=== PATIENT | female | born 1950 | race Caucasian/White ===

== ENCOUNTER 2023-05-19 09:17 | Outpatient (CLI) | payer OTHER, SELFPAY | END 2023-05-19 09:18 | disposition home or self-care (01) | PROVIDERS: PCP Physician Assistant Medical; Visit Provider Physician Assistant Medical | DX: Z00.00 Encounter for general adult medical examination without abnormal findings (principal); E78.5 Hyperlipidemia, unspecified; I10 Essential (primary) hypertension | CPT/HCPCS: 80053; 80061; 82550; 84443 ==

== ENCOUNTER 2023-08-14 12:35 | Outpatient (CLI) | payer MEDICARE, SELFPAY ==
--- NOTE | 2023-08-14 13:00 | CRLHL7_ITS ---
For Patients: As a result of the Century Cures Act, medical imaging exams and procedure reports are released immediately into your electronic medical record. You may view this report before your referring provider. If you have questions, please contact your health care provider. DXA BONE MINERAL DENSITY STUDY Reason for exam: Asymptomatic menopausal state. Current height (in): 61. Weight (lb): 203. Menopause age: 49. Ethnicity: White. 1. Have you had a previous hip or vertebral fracture? No. 2. Have you had any fractures during your adult life which did not result from significant trauma (e.g., auto accident)? Yes. 3. Did either of your parents have a hip fracture? No. 4. Do you smoke? Yes. 5. Have you ever taken Glucocorticoids? No. 6. Do you have rheumatoid arthritis? No. 7. Do you have secondary osteoporosis? No. 8. Do you drink 3 or more alcoholic drinks per day? No. 9. Are you being treated for osteoporosis? No. 10. Have you ever taken any of the following medications: Actonel, Evista, Fosamax, Miacalcin, Reclast, Boniva, Forteo, HRT (i.e., estrogen/hormone therapy), Protelos, Prolia, Vitamin D, Calcium, other ??? please specify. ANSWER: Yes, vitamin D. 11. Do you have any of the following medical conditions: Anorexia or bulimia, asthma or emphysema, end stage renal disease, hyperparathyroidism, any seizure disorders, cancer, inflammatory bowel diseases, hysterectomy, other ??? please specify. ANSWER: No. 12. What was your maximum height (inches)? 61.5 13. Do you perform weight bearing exercise regularly? No. 14. Do you regularly consume dairy products? Yes. 15. Do you drink caffeinated beverages? Yes. If female: 16. At what age did your period start? 11. 17. Are you premenopausal? No. 18. How many full-term pregnancies have you had? 2. 19. Have you ever missed your period for more than 6 months in a row (not including or menopause)? No. TECHNIQUE: Bone mineral density study was performed using the [facility]. FINDINGS: The results of the study expressed as bone mineral density (BMD) are as follows: Lumbar spine L2 to L4: BMD: 1.096 g/cm2. T-score: 0.2. Z-score: 2.6 Neck Left: BMD: 0.778 g/cm2. T-score: -0.6. Z-score: 1.4 Right: BMD: 0.845 g/cm2. T-score: -0.0. Z-score: 2.0 Total Left: BMD: 1.026 g/cm2. T-score: 0.7. Z-score: 2.4 Right: BMD: 1.035 g/cm2. T-score: 0.8. Z-score: 2.5 IMPRESSION: Normal bone density. Jayesh Mohr M.D. Diagnostic Radiologist [email or web address] montoya/Dictated by: Jayesh Mohr MD @ 08/14/2023 3:24:00 PM (Electronically Signed)
--- NOTE | 2023-08-14 13:30 | CRLHL7_ITS ---
For Patients: As a result of the Century Cures Act, medical imaging exams and procedure reports are released immediately into your electronic medical record. You may view this report before your referring provider. If you have questions, please contact your health care provider. INDICATION: Lung cancer screening. History of smoking. High risk patient with greater than 40 pack-year smoking history. TECHNIQUE: Low-dose lung cancer screening non-contrast CT chest. Dose reduction techniques were used. COMPARISON: None. FINDINGS: NODULES: 4.8 millimeter nodule left lower lobe, series 3, image 89. 5.1 millimeter nodule within the lingula, /. Tiny 3 millimeter or less nodules are present elsewhere within the left upper lobe. 2.4 millimeter right upper lobe, series 3 and image 23. Multiple nodules within the periphery of the right lower lobe and right middle lobe measuring up to 4.9 millimeters. LUNGS AND PLEURA: Bleb in the left upper lobe measuring 1.4 cm. MEDIASTINUM: No adenopathy. No thyroid lesion. Vascular calcifications in the aorta. CORONARY ARTERY CALCIFICATION: Mild. LIMITED UPPER ABDOMEN: Status post cholecystectomy. MUSCULOSKELETAL: Normal. IMPRESSION: Multiple bilateral pulmonary nodules measuring 5.1 millimeters or less. LUNG-RADS CATEGORY: 2: Benign. RADIOLOGIST RECOMMENDATION: Continue annual screening with low-dose CT chest in 12 months. Please note that all CT scans at this facility use dose modulation, iterative reconstruction, and/or weight-based dosing when appropriate to reduce radiation dose to as low as reasonably achievable. Dictated by Jayesh Mohr MD @ 08/15/2023 2:00:43 PM (Electronically Signed)
== END 2023-08-14 12:36 | disposition home or self-care (01) ==
LOC: RAD 12:36
PROVIDERS: PCP Physician Assistant Medical; Visit Provider Physician Assistant Medical
DX: Z12.2 Encounter for screening for malignant neoplasm of respiratory organs (principal); R91.8 Other nonspecific abnormal finding of lung field; Z87.891 Personal history of nicotine dependence; Z13.820 Encounter for screening for osteoporosis; Z78.0 Asymptomatic menopausal state
CPT/HCPCS: 71271; 77080

== ENCOUNTER 2024-07-14 10:52 | Outpatient (CLI) | payer MEDICARE, SELFPAY | END 2024-07-14 10:53 | disposition home or self-care (01) | PROVIDERS: PCP Physician Assistant Medical; Visit Provider Physician Assistant Medical | DX: Z00.00 Encounter for general adult medical examination without abnormal findings (principal); E78.5 Hyperlipidemia, unspecified; I10 Essential (primary) hypertension; Z13.1 Encounter for screening for diabetes mellitus; Z13.6 Encounter for screening for cardiovascular disorders; Z13.0 Encounter for screening for diseases of the blood and blood-forming organs and certain disorders involving the immune mechanism; Z13.29 Encounter for screening for other suspected endocrine disorder | CPT/HCPCS: 80053; 80061; 84443 ==

== ENCOUNTER 2024-08-17 10:38 | Outpatient (CLI) | payer MEDICARE, SELFPAY ==
--- NOTE | 2024-08-17 11:00 | CRLHL7_ITS ---
For Patients: As a result of the Century Cures Act, medical imaging exams and procedure reports are released immediately into your electronic medical record. You may view this report before your referring provider. If you have questions, please contact your health care provider. INDICATION: 40+ year smoking history, continues to smoke. History of breast cancer. TECHNIQUE: Low-dose lung cancer screening non-contrast CT chest. Dose reduction techniques were used. COMPARISON: CT chest without contrast 08/14/2023. FINDINGS: MEDIASTINUM/SOFT TISSUES: No pleural or pericardial effusions. No pathologic lymphadenopathy. Aortic atherosclerosis. Unenhanced thoracic aorta and main pulmonary arteries are normal in caliber. Coronary artery calcifications. Heart size is within normal limits. Small hiatal hernia. Soft tissues of the thoracic wall are unremarkable. LUNGS: No pneumothorax. Central airways are patent. Bilateral subcentimeter pulmonary nodules measuring up to 5 mm in the lingula (axial image 95 of series 2) are unchanged. No new nodules or acute airspace disease. UPPER ABDOMEN: Cholecystectomy. Visualized upper abdomen is otherwise unremarkable. BONES: No acute or suspicious abnormality. Degenerative changes of the spine. IMPRESSION: 1. Stable subcentimeter pulmonary nodules (Lung-RADS Category 2: Benign appearance or behavior). 2. Recommendation: Continue annual screening with low-dose chest CT in 12 months. Dictated by Pa Gary MD @ 08/18/2024 1:02:32 PM Please note that all CT scans at this facility use dose modulation, iterative reconstruction, and/or weight-based dosing when appropriate to reduce radiation dose to as low as reasonably achievable. Dictated by: Pa Gary MD @ 08/18/2024 13:02:55 (Electronically Signed)
== END 2024-08-17 10:39 | disposition home or self-care (01) ==
LOC: CT 10:40
PROVIDERS: PCP Physician Assistant Medical; Visit Provider Physician Assistant Medical
DX: Z12.2 Encounter for screening for malignant neoplasm of respiratory organs (principal); F17.210 Nicotine dependence, cigarettes, uncomplicated
CPT/HCPCS: 71271

== ENCOUNTER 2025-07-11 09:10 | Outpatient (CLI) | payer MEDICARE, SELFPAY | END 2025-07-11 09:11 | disposition home or self-care (01) | LOC: NFLDREF 07-13 17:11 | PROVIDERS: PCP Physician Assistant Medical; Referring Provider Physician Assistant Medical; Visit Provider Physician Assistant Medical | DX: Z00.00 Encounter for general adult medical examination without abnormal findings (principal); F41.9 Anxiety disorder, unspecified; E78.5 Hyperlipidemia, unspecified; I10 Essential (primary) hypertension; Z79.899 Other long term (current) drug therapy | CPT/HCPCS: 80053; 80061; 82306; 84439; 84443 ==

== ENCOUNTER 2025-08-16 16:41 | Outpatient (CLI) | payer MEDICARE, SELFPAY ==
--- NOTE | 2025-08-16 16:40 | CRLHL7_ITS ---
For Patients: As a result of the Century Cures Act, medical imaging exams and procedure reports are released immediately into your electronic medical record. You may view this report before your referring provider. If you have questions, please contact your health care provider. INDICATION: BILATERAL SCREENING MAMMOGRAM, ASYMPTOMATIC 75 Y/O FEMALE COMPARISON: 07/16/2024, 05/01/2023 TECHNIQUE: Digital mammogram in CC and MLO projections including computer-aided detection (CAD) and tomosynthesis. BREAST COMPOSITION: There are scattered areas of fibroglandular density. FINDINGS: No suspicious findings. ASSESSMENT: BI-RADS 2 Benign RECOMMENDATION: Annual screening mammogram. A lay language report of this examination will be provided to the patient. Dictated by: Jayesh Mohr MD @ 08/24/2025 10:30:26 (Electronically Signed)
== END 2025-08-16 16:42 | disposition home or self-care (01) ==
LOC: MAMMO 16:42
PROVIDERS: PCP Physician Assistant Medical; Visit Provider Physician Assistant Medical
DX: Z12.31 Encounter for screening mammogram for malignant neoplasm of breast (principal)
CPT/HCPCS: 77063; 77067

== ENCOUNTER 2025-08-24 14:01 | Outpatient (CLI) | payer MEDICARE, SELFPAY ==
--- NOTE | 2025-08-24 14:00 | CRLHL7_ITS ---
For Patients: As a result of the Cures Act, medical imaging exams and procedure reports are released immediately into your electronic medical record. You may view this report before your referring provider. If you have questions, please contact your health care provider. INDICATION: Lung cancer screening. History of smoking. High risk patient with greater than 31 pack-year smoking history. TECHNIQUE: Low-dose lung cancer screening non-contrast CT chest. Dose reduction techniques were used. COMPARISON: 08/17/2024 FINDINGS: NODULES: Stable bilateral pulmonary nodules measuring up to 6 millimeters. LUNGS AND PLEURA: Patchy areas of scarring. No acute cardiopulmonary disease. MEDIASTINUM: No adenopathy. CORONARY ARTERY CALCIFICATION: Mild. LIMITED UPPER ABDOMEN: Gallbladder is absent. MUSCULOSKELETAL: No fracture. IMPRESSION: Stable bilateral pulmonary nodules measuring up to 6 millimeters. LUNG-RADS CATEGORY: 2: Benign. RADIOLOGIST RECOMMENDATION: Continue annual screening, if eligible, with low-dose CT chest in 12 months. Please note that all CT scans at this facility use dose modulation, iterative reconstruction, and/or weight-based dosing when appropriate to reduce radiation dose to as low as reasonably achievable. Dictated by Jayesh Mohr MD @ 08/25/2025 10:04:24 AM (Electronically Signed)
--- NOTE | 2025-08-24 14:30 | CRLHL7_ITS ---
For Patients: As a result of the Century Cures Act, medical imaging exams and procedure reports are released immediately into your electronic medical record. You may view this report before your referring provider. If you have questions, please contact your health care provider. XR DXA BONE MINERAL DENSITY (BMD) Current height (in): 61.0. Weight (lb): 210.0. Menopause age: 49. Ethnicity: White. Reason for exam: Asymptomatic menopausal state. 1. Have you had a previous hip or vertebral fracture? No. 2. Have you had any fractures during your adult life which did not result from significant trauma (e.g., auto accident)? No. 3. Did either of your parents have a hip fracture? No. 4. Do you smoke? Yes. 5. Have you ever taken Glucocorticoids? No. 6. Do you have rheumatoid arthritis? No. 7. Do you have secondary osteoporosis? No. 8. Do you drink 3 or more alcoholic drinks per day? No. 9. Are you being treated for osteoporosis? No. 10. Have you ever taken any of the following medications: Actonel, Evista, Fosamax, Miacalcin, Reclast, Boniva, Forteo, HRT (i.e. estrogen/hormone therapy), Protelos, Prolia, Vitamin D, Calcium, other ??? please specify. ANSWER: Yes, Evista, vitamin D. 11. Do you have any of the following medical conditions: Anorexia or bulimia, asthma or emphysema, end stage renal disease, hyperparathyroidism, any seizure disorders, cancer, inflammatory bowel diseases, hysterectomy, other ??? please specify. ANSWER: No. 12. What was your maximum height (inches)? 61.5. 13. Do you perform weight bearing exercise regularly? No. 14. Do you regularly consume dairy products? Yes. 15. Do you drink caffeinated beverages? Yes. 16. At what age did your period start? 11. 17. Are you premenopausal? No. 18. How many full-term pregnancies have you had? 2. 19. Have you ever missed your period for more than 6 months in a row (not including or menopause)? No. TECHNIQUE: Bone mineral density study was performed using the [employer]. FINDINGS: The results of the study expressed as bone mineral density (BMD) are as follows: Lumbar spine L2 to L4: BMD: 1.089 g/cm2. T-score: 0.1. Z-score: 2.6 Neck Left: BMD: 0.772 g/cm2. T-score: -0.7. Z-score: 1.4 Right: BMD: 0.806 g/cm2. T-score: -0.4. Z-score: 1.7 Total Left: BMD: 1.028 g/cm2. T-score: 0.7. Z-score: 2.6 Right: BMD: 1.052 g/cm2. T-score: 0.9. Z-score: 2.7 IMPRESSION: Normal bone density. *Comparison exams done prior to 04/2020 were performed on different unit, [employer]. COMPARISON: Compared with scan of 08/14/2023, the bone mineral density has decreased by 0.7 percent at the spine and increased by 0.9 percent at the hip. Jayesh Mohr M.D. Diagnostic Radiologist [email or web address] Transcribed: 10:44 am DW/Dictated by: Jayesh Mohr MD @ 08/25/2025 9:40:00 AM (Electronically Signed)
== END 2025-08-24 14:02 | disposition home or self-care (01) ==
LOC: CT 14:02
PROVIDERS: PCP Physician Assistant Medical; Visit Provider Physician Assistant Medical
DX: Z12.2 Encounter for screening for malignant neoplasm of respiratory organs (principal); R91.8 Other nonspecific abnormal finding of lung field; Z72.0 Tobacco use; Z13.820 Encounter for screening for osteoporosis; Z78.0 Asymptomatic menopausal state
CPT/HCPCS: 71271; 77080

== ENCOUNTER 2025-08-25 11:02 | Outpatient (CLI) | payer MEDICARE, SELFPAY | END 2025-08-25 11:03 | disposition home or self-care (01) | LOC: NFLDREF 09-08 01:23 | PROVIDERS: PCP Physician Assistant Medical; Referring Provider Physician Assistant Medical; Visit Provider Physician Assistant Medical | DX: R94.6 Abnormal results of thyroid function studies (principal) | CPT/HCPCS: 84443 ==

== ENCOUNTER 2025-11-09 10:55 | Outpatient (CLI) | payer MEDICARE, SELFPAY | END 2025-11-09 10:56 | disposition home or self-care (01) | LOC: NFLDREF 11-14 10:23 | PROVIDERS: PCP Physician Assistant Medical; Referring Provider Physician Assistant Medical; Visit Provider Physician Assistant Medical | DX: R79.89 Other specified abnormal findings of blood chemistry | CPT/HCPCS: 80048; 84443 ==